=== PATIENT | male | born 1985 | race African-American/Black ===

== ENCOUNTER 2017-10-25 20:54 | Emergency (ER) | payer OTHER, SELFPAY ==
--- NOTE | 2017-10-25 20:59 | ED.LOWEXIN ---
HPI - Extremity Injury (Lower) <KAVON Davis - Last Filed: 10/25/17 22:00> General Chief Complaint: Extremity Injury, Lower Stated Complaint: Rolled his ankle a few days ago, not healing Time Seen by Provider: 10/25/17 20:59 Source: patient Mode of arrival: ambulatory Limitations: no limitations History of Present Illness HPI Narrative: 32-year-old healthy male that is a current every day smoker here for complaint of pain to his right ankle past 4 days. He states that he rolled his ankle inwardly as he was doing physical therapy a few days ago. He denies any direct trauma to the ankle. He reports increased pain with weight-bearing and walking. Patient is ambulatory into the emergency room. He states he has been treating it with ice and elevation help with the swelling. He also has been using Aleve [id number]. He denies any other injuries or concerns at this time. MD complaint: ankle injury Review of Systems <KAVON Davis - Last Filed: 10/25/17 22:00> Constitutional Denies chills, Denies fever(s), Denies lethargy and Denies weakness Eyes Denies change in vision, Denies eye discharge, Denies irritation and Denies loss of vision ENT Ears, Nose, Mouth, and Throat: Denies change in voice, Denies neck pain and Denies sore throat Cardiovascular Denies chest pain, Denies irregular heart rhythm, Denies lightheadedness, Denies palpitations, Denies dyspnea, Denies dyspnea on exertion and Denies orthopnea Respiratory Denies cough, Denies dyspnea, Denies dyspnea on exertion and Denies wheezing Gastrointestinal Gastrointestinal: Denies abdominal pain, Denies change in bowel habits, Denies diarrhea, Denies nausea and Denies vomiting Genitourinary Denies hematuria, Denies flank pain, Denies urinary incontinence and Denies urinary urgency Musculoskeletal Denies neck pain Comments: Right ankle pain Integumentary/Breasts Denies pruritus, Denies erythema, Denies rash and Denies wounds Neurologic Denies confusion, Denies loss of vision and Denies weakness Psychiatric Denies anxiety, Denies confusion, Denies depression, Denies homicidal ideation and Denies suicidal ideation Endocrine Denies palpitations Hematologic/Lymphatic Denies easy bruising Allergic/Immunologic Denies wheezing Exam <KAVON Davis - Last Filed: 10/25/17 22:00> Initial Vital Signs Initial Vital Signs: Vital Signs Temperature 97.6 F 10/25/17 21:02 Pulse Rate 90 10/25/17 21:02 Respiratory Rate 18 10/25/17 21:02 Blood Pressure 151/76 H 10/25/17 21:02 Pulse Oximetry 99 10/25/17 21:02 Const General: cooperative and well developed Nutritional Appearance: well nourished Orientation: alert, awake, oriented x3 and not confused HENMT Mouth: oral mucosae normal and moist mucous membranes Eyes Conjunctivae: conjunctivae normal Sclera: sclerae normal Pupils: PERRL EOM: EOM intact bilaterally Neck Neck: normal visual inspection, trachea midline, No lymphadenopathy, No midline deformity and No JVD Lymphatic: No lymphedema Chest Chest: normal inspection of the chest Resp Effort & Inspection: normal respiratory effort, able to speak in complete sentences, no respiratory distress and no use of accessory muscles Auscultation: clear to auscultation bilaterally, no rales, no rhonchi and no wheezes Cardio Rate: regular rate Rhythm: regular rhythm Heart Sounds: no click, no gallops, no murmurs and no rubs Pulses: normal peripheral pulses Skin General: no rashes or lesions noted, No jaundice and No petechiae Neuro General: alert, oriented x3, gait normal and no focal motor deficits Speech: speech normal Extrem Other: Swelling to the right ankle over the lateral malleolus. No ecchymosis. No open lesions. Distal sensation is intact. Distal pulses are intact. Distal range of motion is intact. <Vinnie Valdez MD - Last Filed: 10/25/17 22:12> Initial Vital Signs Initial Vital Signs: Vital Signs Temperature 97.6 F 10/25/17 21:02 Pulse Rate 90 10/25/17 21:02 Respiratory Rate 18 10/25/17 21:02 Blood Pressure 151/76 H 10/25/17 21:02 Pulse Oximetry 99 10/25/17 21:02 Course <KAVON Davis - Last Filed: 10/25/17 22:00> Orders Ordered: ED Orders 10/25/17 21:06 XR ankle RT min 3V Stat Vital Signs - 8 hr 10/25/17 21:02 Temperature 97.6 F Pulse Rate 90 Respiratory Rate 18 Blood Pressure 151/76 H Pulse Oximetry 99 <Vinnie Valdez MD - Last Filed: 10/25/17 22:12> Orders Ordered: ED Orders 10/25/17 21:06 XR ankle RT min 3V Stat Vital Signs - 8 hr 10/25/17 21:02 Temperature 97.6 F Pulse Rate 90 Respiratory Rate 18 Blood Pressure 151/76 H Pulse Oximetry 99 MDM - Extremity Injury (Lower) <KAVON Davis - Last Filed: 10/25/17 22:00> MDM Narrative Medical decision making narrative: X-ray the right ankle was obtained was negative for any acute fractures. Signs and symptoms presents as sprain to the right ankle. He is placed in a gel splint for comfort and support. He is also given crutches for nonweightbearing. [id number] Aleve as necessary for discomfort. Ice and elevation help with any swelling. Rest area until able to ambulate pain-free for any worsening symptoms return to the emergency room for follow up with primary care provider next week if continued pain recommend MRI. Discharge Plan Departure Patient Disposition: Home Clinical Impression: Right ankle sprain Instructions: DI for Ankle Sprain Activity Restrictions/Additional Instructions: X-ray the right ankle was obtained was negative for any acute fractures. Signs and symptoms presents as sprain to the right ankle. You have been placed in a gel splint for comfort and support and also also given crutches for nonweightbearing use as directed. [id number] Aleve as necessary for discomfort. Ice and elevation to help with any swelling. Rest area until able to ambulate pain-free. For any worsening symptoms return to the emergency room for follow up with primary care provider next week if continued pain recommend MRI. Referrals: [facility] [Provider Group] Stand Alone Forms: Work/School Restrictions <Vinnie Valdez MD - Last Filed: 10/25/17 22:12> Cosign ED Attending Cosedwinaature Attestation: I was present in the ER at the time of this patient's care. I was available for verbal consultation, or to see the patient directly if needed. I agree with the assessment, and care plan.
[2017-10-25 21:02] VITALS: BP 151/76; PULSE 90; RESP 18; TEMP 36.4; O2SAT 99; BMI 28.3
--- NOTE | 2017-10-25 21:06 | DI.RAD.S_ITS ---
PROCEDURE: XR ANKLE RT MIN 3V INDICATIONS: Twisting injury of ankle. TECHNIQUE: 3 views of the ankle were acquired. COMPARISON: None. FINDINGS: Bones: No fractures or dislocations. Ankle mortise is normally aligned. No suspicious bony lesions. Soft tissues: There is soft tissue swelling over the lateral malleolus. There is a probable small tibiotalar joint effusion. Achilles tendon appears normal. IMPRESSION: 1. No fracture or subluxation. Dictated by: Jan Lo M.D. on 10/25/2017 at 21:52 Approved by: Jan Lo M.D. on 10/25/2017 at 21:53
--- NOTE | 2017-10-25 21:15 | PC.NURSE ---
s/p R ankle inverted about 4 days ago during PT. Pt has been using ice/heat pad with elevation. C/o lateral malleolar pain in R ankle, c/o R foot pain with palpation and R calf pain with ambulation. +CMS intact in R foot.
[2017-10-25 22:28] VITALS: BP 130/82; PULSE 94; RESP 16; O2SAT 97
== END 2017-10-25 22:28 | disposition home or self-care (01) ==
PROVIDERS: Emergency Provider Nurse Practitioner Family
DX: S93.401A Sprain of unspecified ligament of right ankle, initial encounter (principal); W18.40XA Slipping, tripping and stumbling without falling, unspecified, initial encounter
CPT/HCPCS: 29540; 73610; 99282; 99283

== ENCOUNTER → 2018-09-03 18:49 | Outpatient (CLI) | payer OTHER, SELFPAY ==
--- NOTE | 2018-09-03 | DI.MRI.S_ITS ---
PROCEDURE: MR SHOULDER RT WO CON INDICATIONS: Pain in right shoulder TECHNIQUE: Noncontrast oblique coronal T2 fast spin echo with fat saturation, oblique sagittal T1 spin echo and T2 fast spin echo with fat saturation, axial T1 spin echo and T2 fast spin echo with fat saturation through the shoulder. COMPARISON: None. FINDINGS: Image quality: Excellent. Rotator cuff: There is distal supraspinatus and infraspinatus tendinosis. Distal subscapularis tendinosis is also seen. No evidence of rotator cuff tendon tear. Sagittal images demonstrate no significant rotator cuff muscle atrophy. Bones and bursae: There is marrow edema involving anterior medial portion of humeral head with subtle internal linear hypointense signal and anterior cortical irregularity concerning for a subtle nondisplaced fracture in this area. No subtle marrow edema involving posterior glenoid is also seen. No discrete glenoid fracture line is noted. No acromioclavicular joint degeneration. The acromion demonstrates conventional anatomy, without an os acromiale. Small amount of joint fluid is seen. No significant subacromial subdeltoid bursal fluid. Capsule and soft tissues: In the absence of intra-articular contrast, there is suggestion of extensive posterior labral tear extending from 8 to 12:00 position. The glenohumeral ligaments appear intact. The long head of the biceps tendon demonstrates normal location and morphology. The rotator interval appears normal, without fibrosis. The coracohumeral ligament is normal in thickness. IMPRESSION: 1. Finding is suggestive of bony contusion and nondisplaced fracture involving anterior medial portion of humeral head. Mild bony contusion is also noted involving posterior glenoid. 2. Suggestion of extensive posterior labral tear from 8 to 12:00 position. Anterior labrum is intact. 3. Distal supraspinatus and infraspinatus tendinosis. No evidence of rotator cuff tendon tear. Dictated by: Nik Verde M.D. on 09/04/2018 at 13:47 Approved by: Nik Verde M.D. on 09/04/2018 at 13:52
== END ==
DX: M25.511 Pain in right shoulder (principal); S40.011A Contusion of right shoulder, initial encounter
CPT/HCPCS: 73221

== ENCOUNTER 2018-09-25 23:30 | Emergency (ER) | payer OTHER, SELFPAY ==
--- NOTE | 2018-09-25 23:36 | DI.RAD.S_ITS ---
PROCEDURE: XR SHOULDER RT MIN 2V INDICATIONS: lifting injury right shoulder TECHNIQUE: 3 views of the shoulder were acquired. COMPARISON: None. FINDINGS: Bones: No fractures or dislocations. No suspicious bony lesions. Visualized ribs appear intact. Soft tissues: No suspicious soft tissue calcifications. The visualized right hemithorax is clear. IMPRESSION: No acute osseous abnormality. Dictated by: Daryl Mcgill M.D. on 09/26/2018 at 7:27 Approved by: Daryl Mcgill M.D. on 09/26/2018 at 7:28
[2018-09-25 23:38] VITALS: BP 159/99; PULSE 83; RESP 20; TEMP 36.6; O2SAT 100
--- NOTE | 2018-09-25 23:58 | ED.UPPEXIN ---
HPI - Extremity Injury (Upper) General Chief Complaint: Extremity Injury, Upper Stated Complaint: RT SHOULDER PAIN Time Seen by Provider: 09/25/18 23:40 Source: patient Mode of arrival: ambulatory Limitations: no limitations History of Present Illness HPI narrative: 33-year-old male here for evaluation of right shoulder pain. Patient states he has a known injury to his right shoulder. He states he has a labral tear diagnosed by an MRI. He has an appointment with the orthopedic surgeons on the [facility] tomorrow. He states that he is relatively been symptom free up until this evening when he went to strip picker his son to put him to sleep when he had a sudden onset of very sharp pain in his right shoulder. He now states that his shoulder is burning. Has pain throughout his right shoulder and into his neck. Has not tried anything for symptoms prior to arrival. Review of Systems Constitutional Denies fever(s) and Denies headache(s) ENT Ears, Nose, Mouth, and Throat: Denies headache(s) Cardiovascular Denies chest pain and Denies dyspnea Respiratory Denies dyspnea Musculoskeletal Denies myalgias, Reports arthralgias (Right shoulder) and Reports tingling (Up into his neck) Integumentary/Breasts Denies new lesions and Denies rash Neurologic Denies headache(s) and Reports tingling (Up into his neck) Hematologic/Lymphatic Denies easy bleeding and Denies easy bruising [facility] History No significant past medical history (Acute) Social History Smoking Status: Current every day smoker Exam Initial Vital Signs Initial Vital Signs: Vital Signs Temperature 97.9 F 09/25/18 23:38 Pulse Rate 83 09/25/18 23:38 Respiratory Rate 20 09/25/18 23:38 Blood Pressure 159/99 H 09/25/18 23:38 Pulse Oximetry 100 09/25/18 23:38 Const General: cooperative, comfortable, well developed, well groomed and No acute distress Orientation: alert and awake [facility] Head: normal to inspection and normocephalic Resp Effort & Inspection: normal respiratory effort Cardio Rate: regular rate Pulses: radial pulses present on the right Back/Spine/Pelvis Cervical Spine: No pain with cervical ROM, No cervical spasm and No cervical spinal tenderness Skin Lesions: no lesions Rashes: no rashes Neuro General: alert and awake Cognition: normal cognition Speech: speech normal Sensory Exam: no sensory deficits noted Extrem Other: Patient has tenderness to palpation throughout his right shoulder. Difficult to obtain any sort of definitive exam secondary to his discomfort with any movement and with palpation. He did seem to be extremely tender on the lateral aspect over the deltoid. He also had significantly more tender with the neer test. Psych Appearance: grossly normal and well kempt Course Orders Ordered: ED Orders 09/25/18 23:36 XR shoulder RT min 2V Stat Discontinued Medications Hydrocodone Bitart/Acetaminophen (Vicodin Prepack) 1 bottle MISC SEEINSTR ONE Stop: 09/25/18 23:59 Ketorolac Tromethamine (Toradol) 30 mg IM NOW ONE Stop: 09/25/18 23:59 Vital Signs - 8 hr 09/25/18 23:38 Temperature 97.9 F Pulse Rate 83 Respiratory Rate 20 Blood Pressure 159/99 H Pulse Oximetry 100 MDM - Extremity Injury (Upper) Imaging Data Shoulder x-ray: Attestation: I personally reviewed and interpreted this imaging study as follows: My impression: No fractures, no dislocations, MDM Narrative Medical decision making narrative: Patient is neurovascularly intact. Very difficult to obtain any sort of exam is right shoulder secondary to pain with any movement and pain with any specific testing and palpation. He did seem to be more tender with testing of the biceps. This would fit with his injury were his elbow was extended and he was flexing at his shoulder when the injury occurred. He already has an appointment scheduled with Orthopedics tomorrow for known labral tear diagnosed on MRI. He was given a shot of Toradol here in the emergency department. Will send home with a prepack of pain medication. We discussed return precautions. He expressed understanding and agreement with plan. Discharge Plan Departure Patient Disposition: Home Clinical Impression: Right shoulder strain Qualifiers: Encounter type: initial encounter Qualified Code(s): S46.911A - Strain of unspecified muscle, fascia and tendon at shoulder and upper arm level, right arm, initial encounter Instructions: DI for Shoulder Pain Activity Restrictions/Additional Instructions: Keep your appointment that you already have scheduled with the orthopedic providers tomorrow. Take the pain medication as needed as directed. Contact your medical department for any work-related restrictions. Return to the emergency department for any new or worsening symptoms
[2018-09-26] MEDS: KETOROLAC 60 MG/2 ML VIAL 30 MG IM (00:06)
[2018-09-26] MEDS: HYDROCODONE/ACET 5/325 PREPACK 1 BOTTLE MISC (00:06)
[2018-09-26 00:12] VITALS: BP 147/87; PULSE 69; RESP 14; O2SAT 99
== END 2018-09-26 00:10 | disposition home or self-care (01) ==
PROVIDERS: Emergency Provider Emergency Medicine
DX: S46.911A Strain of unspecified muscle, fascia and tendon at shoulder and upper arm level, right arm, initial encounter (principal); X50.9XXA Other and unspecified overexertion or strenuous movements or postures, initial encounter
CPT/HCPCS: 73030; 96372; 99282; 99283; J1885